=== PATIENT | male | born 1990 | race Caucasian/White ===

== ENCOUNTER 2021-02-05 09:24 | Emergency (ER) | payer OTHER ==
[2021-02-05] MEDS ORDERED: BACTRIM DS TAB1 EACH PO (11:51)
== END 2021-02-05 12:00 | disposition home or self-care (01) ==
LOC: ER1 09:24
DX: L02.416 Cutaneous abscess of left lower limb (principal); L02.214 Cutaneous abscess of groin; I10 Essential (primary) hypertension; J45.909 Unspecified asthma, uncomplicated; F17.200 Nicotine dependence, unspecified, uncomplicated
CPT/HCPCS: 10060; 87070; 87205; 99283